=== PATIENT | female | born 1975 | race Caucasian/White ===

== ENCOUNTER 2018-02-27 15:54 | Emergency (ER) | payer MEDICAID ==
[~2018-02-27] VITALS: Wt 81.7 kg
--- NOTE | 2018-02-27 20:48 | ERD ---
ER Documentation Chief Complaint Chief Complaint bib self, cc: vag bleed, abd. pain x 1 night, 14 weeks preg. HPI This is a 42-year-old female who is states she is about 14 weeks complaining of lower pelvic pain and mild vaginal bleeding that began yesterday. Also has nausea and vomiting. No fever. No dysuria or frequency. ROS All systems reviewed and are negative except as per history of present illness. Allergies Allergies: Coded Allergies: No Known Allergy (Unverified , 02/27/18) PMhx/Soc Medical and Surgical Hx: pt denies Medical Hx, pt denies Surgical Hx Hx Alcohol Use: No Hx Substance Use: No Hx Tobacco Use: No Smoking Status: Never smoker FmHx Family History: No diabetes Physical Exam Vitals Vital Signs Date Temp Pulse Resp B/P (MAP) Pulse Ox O2 O2 Flow FiO2 Time Delivery Rate 02/27/18 98.6 71 19 137/73 100 16:00 (94) Physical Exam Const: No acute distress Head: Atraumatic Eyes: Normal Conjunctiva ENT: Normal External Ears, Nose and Mouth. Neck: Full range of motion. No meningismus. Resp: Clear to auscultation bilaterally Cardio: Regular rate and rhythm, no murmurs Abd: Soft, non tender, non distended. Result Diagram: 02/27/181915 Results 24 hrs Laboratory Tests Test 02/27/18 19:16 White Blood Count 10.2 10^3/ul Red Blood Count 4.25 10^6/ul Hemoglobin 12.1 g/dl Hematocrit 36.8 % Mean Corpuscular Volume 86.6 fl Mean Corpuscular Hemoglobin 28.5 pg Mean Corpuscular Hemoglobin Concent 32.9 g/dl Red Cell Distribution Width 13.7 % Platelet Count 473 10^3/UL Mean Platelet Volume 9.2 fl Immature Granulocytes % 0.200 % Neutrophils % 60.1 % Lymphocytes % 27.7 % Monocytes % 7.4 % Eosinophils % 4.3 % Basophils % 0.3 % Nucleated Red Blood Cells % 0.0 /100WBC Immature Granulocytes # 0.020 10^3/ul Neutrophils # 6.1 10^3/ul Lymphocytes # 2.8 10^3/ul Monocytes # 0.8 10^3/ul Eosinophils # 0.4 10^3/ul Basophils # 0.0 10^3/ul Nucleated Red Blood Cells # 0.0 10^3/ul Urine Color STRAW Urine Clarity CLEAR Urine pH 5.0 Urine Specific [place] 1.009 Urine Ketones NEGATIVE mg/dL Urine Nitrite NEGATIVE mg/dL Urine Bilirubin NEGATIVE mg/dL Urine Urobilinogen NEGATIVE mg/dL Urine Leukocyte Esterase NEGATIVE Lucas/ul Urine Microscopic RBC 1 /HPF Urine Microscopic WBC 1 /HPF Urine Bacteria FEW /HPF Urine Hemoglobin 1+ mg/dL Urine Glucose NEGATIVE mg/dL Urine Total Protein NEGATIVE mg/dl Beta HCG, Quantitative 42000.0 mIU/ml Procedures/MDM 42-year-old who is with history and physical exam findings consistent with demise. Patient to follow-up with primary care/[facility] OPERATOR within the next 2 days. She was given copies of her ultrasound and lab. Patient counseled regarding my diagnostic impression and care plan. Prior to discharge all questions answered. Pt agrees with treatment plan and understands strict return precautions. Pt is instructed to follow up with primary care provider within 24-48 hours. Precautionary instructions provided including instructions to return to the ER if not improving or for any worsening or changing symptoms or concerns. Departure Diagnosis: Primary Impression: demise Condition: Stable Patient Instructions: Miscarriage Referrals: [facility] [place] [id number] [id number] OFFICE FAX MICHAEL ENGLANDA [address] [place], [place] [id number] [facility] [address] [place], [place] [phone] [facility] [address] [facility] [address] [id number] ATTILA FOWLER [address] [place], [place] [phone] [facility] [address] [place], [place] [address] [address] [facility] [id number] - TATIANNA YEPEZ [address], [place] [address] DR DEL ROSARIO, BRENDEN [address] [facility] [address], [place] [address] DR NOLAN, FARID [address] [place] [address] Additional Instructions: Llame al doctor MAANA y anirudh eboni KIRTI PARA DENTRO DE 1-2 GAN.Dgale a la secretaria que nosotros le instruimos hacer esta kirti.Avise o llame si pereira condicin se empeora antes de la kirti. Regresa aqui si peor o no mejor. SHAKA STEELE PA-C Feb 27, 2018 20:48
[2018-02-27 21:11] VITALS: BP 122/63; PULSE 67; RESP 18
== END 2018-02-27 21:12 | disposition home or self-care (01) ==
LOC: FTE 15:54
DX: O02.1 Missed abortion (principal)
CPT/HCPCS: 36415; 76801; 76817; 81001; 84702; 85025; 86900; 86901; Z7502

== ENCOUNTER 2018-03-04 06:36 | Emergency (ER) | payer MEDICAID ==
[~2018-03-04] VITALS: Ht 167.6 cm; Wt 81.8 kg
[2018-03-04 06:39] VITALS: BP 148/78; PULSE 70; RESP 20; Ht 167.6 cm; Wt 81.8 kg
[2018-03-04] MEDS ORDERED: ACETAMINOPHEN 325 MG TAB PO ONE (07:30)
[2018-03-04] MEDS ORDERED: IBUP800T48 PO (09:37)
[2018-03-04] MEDS ORDERED: IBUPROFEN 800 MG TAB PO ONE (10:00)
--- NOTE | 2018-03-04 15:46 | ERD ---
ER Documentation Chief Complaint Chief Complaint Complains of vag bleed and 8 weeks HPI 41-year-old female who was diagnosed with demise a week ago presented to ED for miscarriage. Patient states that she started heavy vaginal bleeding this morning, and she thinks that she had expelled products of conception at home this morning. Patient states that she is continued to have pelvic pain with loss of blood clots. Denies fever or chills. Denies dizziness or shortness of breath. Patient is . ROS All systems reviewed and are negative except as per history of present illness. Medications Home Meds Active Scripts Ibuprofen* (Motrin*) 800 Mg Tab, 800 MG PO Q8 PRN for PAIN AND OR ELEVATED TEMP, #30 TAB Prov:GEOVANI CARTER DRESS FINISHER 03/04/18 Allergies Allergies: Coded Allergies: No Known Allergy (Unverified , 02/27/18) PMhx/Soc Medical and Surgical Hx: pt denies Medical Hx, pt denies Surgical Hx Hx Alcohol Use: No Hx Substance Use: No Hx Tobacco Use: No Smoking Status: Never smoker Physical Exam Vitals Vital Signs Date Temp Pulse Resp B/P (MAP) Pulse Ox O2 O2 Flow FiO2 Time Delivery Rate 03/04/18 97.6 70 20 148/78 99 06:39 (101) Physical Exam General: Well-developed, well-nourished, conscious and coherent, in no distress Skin: Warm and dry without rash, good texture and turgor Head: Normocephalic without evidence of trauma Chest: Normal AP diameter. Good expansion without retractions. Nontender. Lungs are clear to auscultate bilaterally with good tidal volume Heart: Regular rate and rhythm. No murmur, rub, or gallops heard Abdomen: Soft, pelvic tenderness without masses, guarding, or rebound. Bowel sounds are active. No hepatosplenomegaly Back: Without spinal or CVA tenderness Extremities: Full range of motion. Good strength bilaterally. No erythema, ecchymosis, or edema. Peripheral pulses are intact. Sensation intact Neuro: Alert and oriented 4, GCS 15. Result Diagram: 03/04/18 0742 Results 24 hrs Laboratory Tests Test 03/04/18 07:42 White Blood Count 13.1 10^3/ul Red Blood Count 3.97 10^6/ul Hemoglobin 11.2 g/dl Hematocrit 34.2 % Mean Corpuscular Volume 86.1 fl Mean Corpuscular Hemoglobin 28.2 pg Mean Corpuscular Hemoglobin Concent 32.7 g/dl Red Cell Distribution Width 13.6 % Platelet Count 422 10^3/UL Mean Platelet Volume 9.0 fl Immature Granulocytes % 0.300 % Neutrophils % 73.4 % Lymphocytes % 17.3 % Monocytes % 5.8 % Eosinophils % 2.8 % Basophils % 0.4 % Nucleated Red Blood Cells % 0.0 /100WBC Immature Granulocytes # 0.040 10^3/ul Neutrophils # 9.6 10^3/ul Lymphocytes # 2.3 10^3/ul Monocytes # 0.8 10^3/ul Eosinophils # 0.4 10^3/ul Basophils # 0.1 10^3/ul Nucleated Red Blood Cells # 0.0 10^3/ul Beta HCG, Quantitative 7615.3 mIU/ml Current Medications Medications Dose Sig/Analia Start Time Status Last (Trade) Ordered Route PRN Stop Time Admin Dose Reason Admin 650 mg ONCE ONCE 03/04/18 DC 03/04/18 Acetaminophen PO 07:30 07:34 (Tylenol 03/04/18 07:31 Tab) Ibuprofen 800 mg ONCE ONCE 03/04/18 DC 03/04/18 (Motrin) PO 10:00 09:43 03/04/18 10:01 PROCEDURE: US Pelvis. CLINICAL INDICATION: Vaginal bleeding, TECHNIQUE: Multiple sonographic images of the pelvis were obtained utilizing a transabdominal and endovaginal technique. The images were reviewed on a PACS workstation. COMPARISON: US PELVIS 02/27/2018 FINDINGS: The previously identified intrauterine this additional is no longer identified. There is heterogeneous debris and thickening within the endometrial canal. There are no suspicious adnexal lesions. There is no vascularity seen within the endometrial canal. IMPRESSION: Previously identified intrauterine gestational is no longer identified. Heterogeneous thickening of the endometrial canal is noted likely on the basis of debris. No associated vascularity to suggest the presence of retained products of conception. RPTAT: HAP Admit-r Faisal Physician Date Time Electronically viewed and signed by Dulce Maria Malone, Physician on 03/04/2018 08:11 AP/ CC: GEOVANI CARTER DRESS FINISHER Procedures/MDM ED course: CBC: No evidence of severe anemia or infection. Beta hC.3, significantly lower from last week UA: No evidence of urinary tract infection. Blood type: O+. RhoGAM is not indicated for patient. OB ultrasound: Previously identified intrauterine gestation is no longer identified. Heterogeneous thickening of the endometrial canal, no associated vascularity to suggest presence of retained products of conception. Medical decision-makin-year-old female with previous diagnosis of demise present ED with pelvic pain and vaginal bleeding. Ultrasound confirmed the patient had a complete . No sign of retained products of conception. Patient is O-, RhoGam not indicated. On exam, patient does not have any active heavy vaginal bleeding. Pelvic exam deferred. Patient is advised to follow-up with her PCP in 2-3 days. Medications on discharge: Ibuprofen. Follow-up: Primary care provider in 2 days or return to ED if worse. Departure Diagnosis: Primary Impression: Complete Condition: Stable Patient Instructions: Miscarriage [facility] Usted se bone hecho un examen mdico de control que le indica que no est en eboni condicin que requiera tratamiento urgente en el Departamento de Emergencia. Un estudio ms profundo y el tratamiento de pereira condicin pueden esperar sin ningn riesgo hasta que usted sea atendida/o en el consultorio de pereira mdico o eboni clnica. Es responsabilidad suya arreglar eboni kirti para el seguimiento del ting. MANEJO DE CONDICIONES NO URGENTES EN EL FUTURO 1) Si usted tiene un mdico de atencin primaria: Usted debera llamar a pereira mdico de atencin primaria antes de venir al departamento de emergencia. Despus de las horas de consultorio, pereira doctor o pereira asociado/a est disponible por telfono. El mdico o enfermero de dyan en el servicio telefnico puede asesorarle por delmy medio para atender el problema, o ting contrario se puede programar eboni kirti. 2) Si usted no tiene un mdico de atencin primaria: Llame al mdico o clnica de referencia que aparece abajo chris las horas de consultorio para hacer eboni kirti para que le vean. CLINICAS: [facility] [phone] [facility] [phone] [address] [facility] [phone] [address] [facility]. [place] [phone] [facility]. [place] [phone] [address] [facility] [phone] [address] Additional Instructions: Llame al doctor nombrado abajo (Referral Sources) MAANA y anirudh eboni KIRTI PARA DENTRO DE EBONI SEMANA. Dgale a la secretaria que nosotros le instruimos hacer esta kirti.Avise o llame si pereira condicin se empeora antes de la kirti. GEOVANI CARTER. CHAPINCITO Mar 04, 2018 15:46
== END 2018-03-04 09:59 | disposition home or self-care (01) ==
LOC: FTE 06:36
DX: O03.9 Complete or unspecified spontaneous abortion without complication (principal); R40.2412 Glasgow coma scale score 13-15, at arrival to emergency department; R10.2 Pelvic and perineal pain
CPT/HCPCS: 36415; 76801; 84702; 85025; 86900; 86901; Z7502; Z7610